=== PATIENT | male | born 1960 | race Caucasian/White ===

== ENCOUNTER 2024-03-11 10:29 | Outpatient (CLI) | payer BC, SELFPAY ==
--- NOTE | ~2024-03-11 | XR_ITS ---
XR knee RT 3V Ordering provider: Forrest Kyle MD History: . pain in right knee x 3 months . Comparison: None. FINDINGS: BONES: No acute fracture or dislocation. JOINT SPACES: Slight narrowing of the medial compartment. SOFT TISSUES: Normal. IMPRESSION: No acute osseous abnormality right knee. Mild osteoarthritic changes. Reviewed, dictated and finalized at location A.
== END 2024-03-11 10:30 | disposition home or self-care (01) ==
LOC: CHSIMG 10:34
PROVIDERS: PCP Family Medicine; Visit Provider Family Medicine
DX: M25.561 Pain in right knee (principal)
CPT/HCPCS: 73562

== ENCOUNTER 2024-08-26 10:18 | Outpatient (CLI) | payer OTHER, SELFPAY ==
--- NOTE | ~2024-08-26 | MR_ITS ---
EXAMINATION: MR knee RT wo con DATE: 08/26/2024 11:52 INDICATION: Medial right knee pain TECHNIQUE: Magnetic resonance imaging (MRI) of the right knee was performed without intravenous contr ast. Sequences included coronal PD-weighted FSE, coronal PD-weighted FS FSE, sagittal T2-weighted FS E, sagittal PD-weighted FS FSE and axial PD weighted fat saturated FSE. COMPARISON: Right knee radiographs dated 03/11/2024 FINDINGS: Medial compartment: Tear, likely either complex or radial at the posterior body of the medial meniscus. There is partial thickness chondral ulceration with mild partial-thickness cartilage loss and shallow chondral surface regularity anterior weightbearing medial femoral condyle. There is deep partial thickness chondral u lceration with minimal underlying subarticular edema-like signal change along the anteromedial aspect of the medial tibial plateau. Lateral compartment: Lateral meniscus is normal. There is a deep chondral fissure at the posterior medial aspect of the la teral tibial plateau. There is adjacent chondral ulceration with mild underlying subarticular edema-l laura signal change and more medially along the shoulder the intercondylar eminence. Cartilage along th e weightbearing lateral femoral condyle is normal. Patellofemoral compartment: Full thickness chondral ulceration and deep fissuring at the patellar apical ridge and lateral facet with underlying subarticular edema-like signal change. Mild partial-thickness chondral fissuring with out degenerative subchondral changes at the central aspect of the trochlear groove. Ligaments and tendons: Anterior and posterior cruciate ligaments are normal. The medial collateral ligament and fibular alanna ateral ligament complex are normal. The extensor mechanism is normal. The visualized medial and later al hamstring tendons as well as the iliotibial band are normal. Fluid: Minimal joint effusion at the suprapatellar pouch. No loose osteochondral bodies identified. Osseous/other: No fracture or pathologic marrow replacing process. IMPRESSION: 1. Radial versus complex tear at the posterior body of the medial meniscus. 2. 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 Reviewed, dictated and finalized at location B. ERCIAL INTELLIGENCE MANAGER
== END 2024-08-26 10:19 | disposition home or self-care (01) ==
PROVIDERS: PCP Family Medicine; Visit Provider Family Medicine
DX: M25.561 Pain in right knee (principal); S83.241A Other tear of medial meniscus, current injury, right knee, initial encounter; M17.11 Unilateral primary osteoarthritis, right knee; M94.261 Chondromalacia, right knee
CPT/HCPCS: 73721

== ENCOUNTER 2025-07-12 01:10 | Day surgery (SDC) | payer OTHER, SELFPAY ==
[2025-06-22 10:21] VITALS: BMI 40.7
--- OUTSIDE RECORDS SUMMARY | 2025-07-12 01:16 | XMS_ITS | Clinical Summary ---
Author Organization [facility] Address Formerly [facility], [facility] [place] [address] Care Team Providers Care Rig Builder Helper Name Role Phone Forrest Kyle MD Primary Care Provider [phone] Allergies No known active allergies Medications acetaminophen (TYLENOL) 325 MG tablet Take 2 tablets (650 mg total) by mouth every 6 (six) hours as needed for Pain. Active Active Problems Problem Noted Date Diagnosed Date Right knee pain 09/23/2024 Acute medial meniscus tear of right knee 025 Family History Medical History Relation Comments Cancer Father Cancer Mother Relation Status Comments Father Mother Social History Tobacco Use Types Packs/Day Years Used Date Smoking Tobacco: Never Smokeless Tobacco: Never Tobacco Cessation:Counseling Given: Not Answered Alcohol Use Standard Drinks/Week Comments Yes 5 (1 standard drink = 0.6 oz pur e alcohol) Sex and Gender Information Value Date Recorded Sex Assigned at Male 09/07/2024 12:32 PM GREENBELT Legal Sex Male 5:50 PM GREENBELT Gender Identity Not on file Sexual Orientation Not on file Last Filed Vital Signs Vital Sign Reading Time Taken Comments Blood Pressure - - Pulse - - Temperature - - Respiratory Rate - - Oxygen Saturation - - Inhaled Oxygen Concentration - - Weight 114.3 kg (252 lb) 10/13/2024 2:11 PM CDT Height 170.2 cm (5' 7) 10/13/2024 2:11 PM CDT Body Mass Index 39.47 10/13/2024 2:11 PM CDT Plan of Treatment Health Maintenance Due Date Last Done Comments Colorectal Cancer Screening Colonoscopy (10 Years) 1960 Annual Physical 1965 Hepatitis C 1980 Pneumococcal Vaccine: 50+ Years (1 of 1 - PCV) 2012 Zoster Vaccines (1 of 2) 2012 COVID-19 Vaccine (1 - 2024-2 6 season) 2025 Influenza Adult (#1) 2025 DTaP, Tdap and Td Vaccines ( 3 - Td or Tdap) 03/26/2026 03/26/2016, 04/04/2007 RSV Immunization or 60+ Years (1 - 1-dose 75+ series) 2037 Hepatitis A Vaccines Aged Out No long er eligible based on patient's age to complete this topic Meningococcal B Vaccine Aged Out No l onger eligible based on patient's age to complete this topic Meningococcal Vaccine Aged Out No jessi jerardo eligible based on patient's age to complete this topic RSV Immunizations Under 20 Months Aged Out No longer eligible b ased on patient's age to complete this topic Insurance * Guarantor: Rk Maciel Account Type Relation to Patient Date of Phone Billing Address Personal/Family Self 1960 [id number] [place] [address] GENERIC - COMMERCIAL Care Teams Rig Builder Helper Relationship Specialty Start Date End Date Forrest Kyle MD [address] [place] [address] PCP - General FAMILY PRACTICE 09/07/24
--- OUTSIDE RECORDS SUMMARY | 2025-07-12 01:16 | XMS_ITS | Encounter Summary ---
Author Organization [facility] Address Formerly [facility], [facility] [place] [address] Care Team Providers Care Passenger Solicitor Name Role Phone Forrest Kyle MD Primary Care Provider Encounter Details Date Type Department Care Team (Late st Contact Info) Description 09/15/2024 Money Forwardt Message Enc [address] [address] Dhaval Brenardo MD Visit Follow Up Social History Tobacco Use Types Packs/Day Years Used Date Smoking Tobacco: Never Smokeless Tobacco: Never Alcohol Use Standard Drinks/Week Comments Yes 5 (1 standard drink = 0.6 oz pur e alcohol) Sex and Gender Information Value Date Recorded Sex Assigned at Male 09/07/2024 12:32 PM HEEL SEAT FITTER Legal Sex Male 5:50 PM HEEL SEAT FITTER Gender Identity Not on file Sexual Orientation Not on file documented as of this encounter Plan of Treatment Not on file documented as of this encounter Visit Diagnoses Not on filedocumented in this encounter Care Teams Passenger Solicitor Relationship Specialty Start Date End Date Forrest Kyle MD [address] [place] [address] PCP - General FAMILY PRACTICE 09/07/24 documented as of this encounter
[2025-07-12 07:20] VITALS: BP 142/74; PULSE 63; RESP 20; TEMP 35.6; O2SAT 96; BMI 40.4
[2025-07-12] MEDS: LACTATED RINGERS 1,000 ML 150 ML IV CONT (07:29)
--- NOTE | 2025-07-12 07:44 | WPDANESEPPF ---
Anes - Initial Pre Proc Eval Procedure: Operation Date: 07/12/25 08:30 Proposed Procedures p Screening Colonoscopy - Te Nicole MD Date/Time: 07/12/25 07:44 Surgeon: Te Nicole MD Pre Op Diagnosis: Screening Patient Data Age: 64 Gender: M Height: 1.7 m Weight: 116.9 kg Last Vital Signs Temp 96.1 F L 07/12/25 07:20 Pulse 63 07/12/25 07:20 Resp 20 07/12/25 07:20 BP 142/74 H 07/12/25 07:20 Pulse Ox 96 07/12/25 07:20 O2 Del Method Room Air 07/12/25 07:20 Allergies Allergy/AdvReac Type Severity Reaction Status Date / Time No Known Allergies Allergy Verified 07/12/25 07:18 Home Medications ?Medication ?Instructions ?Recorded ?Confirmed ?Type losartan 25 mg tablet 25 mg PO DAILY 06/22/25 07/12/25 History metoprolol succinate 25 mg 25 mg PO DAILY 06/22/25 07/12/25 History tablet,extended release 24 hr terbinafine HCl 250 mg tablet 250 mg PO DAILY 06/22/25 07/12/25 History Patient hx anesthesia problems: none Family hx anesthesia problems: none Results Review: All pre-operative results and documents have been reviewed as part of the pre-operative evaluation. REPLACED BY [facility] Past Medical History Medical History Class 2 obesity with body mass index (BMI) of 36.0 to 36.9 in adult History of cellulitis Hx of cellulitis of the leg Surgical History Surgical History H/O colonoscopy History of circumcision Family History Family History Father Smoker Cancer Mother Smoker Pancreatic cancer Unknown Lung cancer Diabetes mellitus Cerebrovascular accident Sibling Breast cancer Social History Social History Smoking status: Never smoker Alcohol intake: current Drinks per week: 4 Substance use: never Substance use type: does not use Living arrangements: with family Spiritual care concerns: No Anes - Eval Final PreProcedure Day of Procedure 07/12/25 07:44 Patient weight: obese Lungs: normal air movement Airway: Mallampati scale class II Neurological: alert and oriented Last oral intake: >/= 8 hours ASA classification: III Emergent: no Anesthetic plan: proceed Anesthesia type and monitoring: general GIVS and standard monitoring Results Review: All pre-operative results and documents have been reviewed as part of the pre-operative evaluation. HTN, BMI 40, active without cp or sob. Informed Consent: The patient's anesthetic plan and its attendant risks and benefits were discussed with the patient/family/POA. Questions were solicited and answers provided to the satisfaction of the patient/family/POA.
--- NOTE | 2025-07-12 08:19 | PM.HPGS ---
History of Present Illness History of Present Illness Consent: Risks, benefits, and alternatives have been discussed and questions answered. Patient agrees to proceed with procedure. Chief complaint: Screening Narrative: Rk Maciel is a 64 year old male here for screening colonoscopy Review of Systems Review of Systems: All systems reviewed & are unremarkable except as noted in HPI and below PMFSH Past Medical History Medical History Class 2 obesity with body mass index (BMI) of 36.0 to 36.9 in adult History of cellulitis Hx of cellulitis of the leg Surgical History Surgical History H/O colonoscopy History of circumcision Family History Family History Father Smoker Cancer Mother Smoker Pancreatic cancer Unknown Lung cancer Diabetes mellitus Cerebrovascular accident Sibling Breast cancer Social History Social History Smoking status: Never smoker Alcohol intake: current Drinks per week: 4 Substance use: never Substance use type: does not use Living arrangements: with family Spiritual care concerns: No Meds Home Medications and Allergies Home Medications ?Medication ?Instructions ?Recorded ?Confirmed ?Type losartan 25 mg tablet 25 mg PO DAILY 06/22/25 07/12/25 History metoprolol succinate 25 mg 25 mg PO DAILY 06/22/25 07/12/25 History tablet,extended release 24 hr terbinafine HCl 250 mg tablet 250 mg PO DAILY 06/22/25 07/12/25 History Allergies Allergy/AdvReac Type Severity Reaction Status Date / Time No Known Allergies Allergy Verified 07/12/25 07:18 Vital Signs Vital Signs - 24 hr 07/12/25 07:20 Temperature 96.1 F L Pulse Rate 63 Respiratory Rate 20 Blood Pressure 142/74 H Pulse Oximetry 96 Oxygen Delivery Room Air Exam Const: General: comfortable and no acute distress HENMT: Face/Nose/Sinus: Normal nares present Eyes: General: appearance normal, both eyes and all related structures Neck: Neck: no JVD Resp: Auscultation: clear to auscultation bilaterally Cardio: Rate: regular rate Rhythm: regular rhythm GI: Inspection: non-distended GI Palp: Yes Soft to palpation Skin: General skin exam: normal color Extrem: General: normal to inspection Psych: Mental Status: mental status grossly normal Assessment and Plan Assessment and plan (1) Screen for colon cancer: Code(s): Z12.11 - Encounter for screening for malignant neoplasm of colon Status: Acute Assessment and Plan: colonoscopy
--- NOTE | 2025-07-12 08:29 | S_PTH ---
PATIENT: Rk Maciel LOC: [facility]on#:[id number] AGE/SX: 64/M ROOM: RE07/12/[address]: Te Nicole MD : 1960 BED: DIS: 07/12/2025 SPEC #: [id number] RECD: 07/12/25 09:54 STATUS: PB SLATER #: [id number] RAIMUNDO: 07/12/25 08:[address]: Te Nicole DEPT: [facility] Surgical RECD BY: Hoang Lopez ENTERED: 07/12/25 09:55 SP TYPE: Surgical OTHR DR: Forrest Kyle MD Tissues: A - Colon Polypectomy B - Colon Polypectomy Procedures: Hematoxylin and Eosin Stain Gross and Microscopic Level 4
[2025-07-12 08:42] VITALS: BP 103/66; PULSE 62; RESP 16; O2SAT 96
[2025-07-12 08:52] VITALS: BP 114/66; PULSE 54; RESP 19; O2SAT 96
[2025-07-12 09:02] VITALS: BP 122/71; PULSE 58; RESP 20; O2SAT 97
== END 2025-07-12 09:11 | disposition home or self-care (01) ==
PROVIDERS: PCP Family Medicine; Referring Provider Family Medicine; Visit Provider Internal Medicine Gastroenterology
PROC: 0DJD8ZZ Inspection of Lower Intestinal Tract, Via Natural or Artificial Opening Endoscopic (ICD-10-PCS; CPT 45378; principal; 2025-07-12 08:30)
DX: Z12.11 Encounter for screening for malignant neoplasm of colon (principal); D12.3 Benign neoplasm of transverse colon; D12.8 Benign neoplasm of rectum; K57.30 Diverticulosis of large intestine without perforation or abscess without bleeding; I10 Essential (primary) hypertension; E66.9 Obesity, unspecified; Z68.41 Body mass index [BMI] 40.0-44.9, adult; Z98.890 Other specified postprocedural states; Z80.0 Family history of malignant neoplasm of digestive organs; Z80.1 Family history of malignant neoplasm of trachea, bronchus and lung; Z80.3 Family history of malignant neoplasm of breast
CPT/HCPCS: 45385; 45380; 88305; J2003; J2704; J7120